=== PATIENT | male | born 1965 | race Caucasian/White ===

== ENCOUNTER 2019-01-15 09:12 | Emergency (ER) | payer SELFPAY ==
[2019-01-15] MEDS ORDERED: Sodium Chloride 0.9% 1,000 ML ONE (09:25)
[2019-01-15] MEDS ORDERED: Adenosine 12 MG/4 ML SDV ONE (09:25)
[2019-01-15] MEDS ORDERED: Adenosine 6 MG/2 ML SDV IVPUSH ONE (09:25)
--- NOTE | 2019-01-15 09:25 | EDM.PDOC ---
ED HPI GENERAL MEDICAL PROBLEM - General Chief Complaint: Cardiovascular Problem Stated Complaint: DEBI SENT HIM OVER HERE Time Seen by Provider: 01/15/19 09:19 Source of Information: Reports: Patient, Provider (From the occupational health clinic) History Limitations: Reports: No Limitations - History of Present Illness INITIAL COMMENTS - FREE TEXT/NARRATIVE: Provider and occupational health clinic indicates that she's been seeing Mr. Jay for the better part of 10 days due to development of cellulitis in his dorsal left hand. He's been on Bactrim double strength tablets for the last 10 days in the infection seems to be coming under control. However when she examined this morning he was diaphoretic cool pallid and heart rate was in the 155 range and he was hypotensive. She did not comment whether he was febrile or hypoxic. She sent him to the ED for further evaluation. Patient states he didn' t feel quite right when he got up for work this morning about 0430 hrs.. Talpa a little dizzy and offkilter and his balance. Slightly short of breath as well. No central chest pain blood pressure discomfort in his epigastrium with no radiation through to his back. No nausea or vomiting. He states was about 2 miles north of [place] when he decided to turn around and come back to town for evaluation because he was feeling so unwell. Monitor shows that he's an SVT in the 150s to 160s. Patient states she has not taken any decongestants or illicit drugs such as methamphetamines or cocaine. States using occasional beer but hasn't had one for a couple of days. Usually drinks 2-3 cups of coffee a day. He is a nonsmoker. Onset: Today, Unknown/Unsure (Unsure what time. He didn't feel quite right when he got up for work this morning.) Onset Date: 01/15/19 Duration: Hour(s): Location: Reports: Head, Chest (Feels dizzy and lightheaded feels mildly short of breath. Not aware of palpitations) Quality: Reports: Other Severity: Moderate (Mild dyspnea) Improves with: Reports: Rest (SM seem to come and go.) Worsens with: Reports: Rest Context: Reports: Other (Velma is occurrence of symptoms.). Denies: Activity , Exercise, Lifting, Sick Contact, Trauma Associated Symptoms: Reports: Diaphoresis, Loss of Appetite, Malaise, Shortness of Breath, Weakness, Other (Some pressure discomfort in his epigastrium.). 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 [No Known Home Meds] 08/15/15 [History] Past Medical History - Past Health History Medical/Surgical History: Denies Medical/Surgical History Musculoskeletal History: Reports: Other (See Below) (On antibiotics for a injury to his left hand since January 09. Still has 5 days of therapy. Is his Bactrim double strength twice a day. Initial injury was a simple caught on the dorsal aspect of his index finger which became secondarily infected. He states it spread to his entire dorsal hand at the time he gets sought medical care.) Social & Family History - Tobacco Core Measures Tobacco Use/Smoking Within Last 30 Days: No - Living Situation & Occupation Living situation: Reports: Occupation: Employed ED ROS GENERAL - Review of Systems Review Of Systems: See Below Constitutional: Reports: Malaise, Fatigue, Diaphoresis (This morning), Decreased Appetite. Denies: Fever, Chills HEENT: Reports: No Symptoms Respiratory: Reports: Shortness of Breath (Is morning) Cardiovascular: Reports: Dyspnea on Exertion, Lightheadedness. Denies: Chest Pain, Blood Pressure Problem, Claudication, Edema (Mild), Orthopnea Endocrine: Reports: Fatigue GI/Abdominal: Reports: Abdominal Pain : Reports: No Symptoms (Pressure discomfort in the epigastrium.) Musculoskeletal: Reports: Other (He has a healing wound on the dorsal aspect of his left index finger distal phalanx. There is no erythema of the hand. There is slight erythema and swelling middle and distal phalanges of the index finger) Skin: Reports: Other (Healing wound dorsal aspect left second finger) Neurological: Reports: Dizziness (Today.) Psychiatric: Reports: No Symptoms Hematologic/Lymphatic: Reports: No Symptoms Immunologic: Reports: No Symptoms ED EXAM, GENERAL - Physical Exam Exam: See Below Exam Limited By: No Limitations General Appearance: Alert, WD/WN, No Apparent Distress, Other (Monitor reveals SVT at 1 62/m. Pressure was 111/94. Afebrile. Sats 100% on room air) Eye Exam: Bilateral Eye: Normal Inspection Neck: Normal Inspection, Supple, Non-Tender, Full Range of Motion. No: Carotid Bruit, Lymphadenopathy (L), Lymphadenopathy (R) Respiratory/Chest: No Respiratory Distress, Lungs Clear, Normal Breath Sounds, No Accessory Muscle Use Cardiovascular: No Edema, No Gallop, No Murmur, No Rub, Tachycardia ([place] reveals a regular narrow complex tachycardia i.e. SVT at 1 62/m) Peripheral Pulses: 1+: Posterior Tibial (L), Posterior Tibial (R), Dorsalis Pedis (L), Dorsalis Pedis (R) GI/Abdominal: Normal Bowel Sounds, Soft, Non-Tender, No Organomegaly, No Abnormal Bruit, No Mass, Pelvis Stable, Other (No surgical scars) Back Exam: Normal Inspection, Full Range of Motion. No: CVA Tenderness (L), CVA Tenderness (R) Extremities: Normal Inspection, Normal Range of Motion, Non-Tender, No Pedal Edema Neurological: Alert, Oriented, CN II-XII Intact, Normal Cognition Psychiatric: Normal Affect, Normal Mood Skin Exam: Warm, Dry, Intact, Normal Color, No Rash EKG INTERPRETATION EKG Date: 01/15/19 Time: 09:24 Rhythm: Other (No complex tachycardia PSVT) Rate (Beats/Min): 157 [place]: LAD-Left [place] Deviation (Left axis deviation suggesting left anterior fascicular block.) P-Wave: Absent QRS: Other (No complex tachycardia. Early R-wave transition. Consider septal hypertrophy pattern.) ST-T: Normal QT: Prolonged (Minimally prolonged.) EKG Interpretation Comments: No signs of ischemia. Course - Vital Signs Last Recorded V/S: Last Vital Signs Temp 36.1 C 01/15/19 09:21 Pulse 82 01/15/19 10:01 Resp 16 01/15/19 09:21 BP 133/89 01/15/19 10:01 Pulse Ox 98 01/15/19 10:01 - Orders/Labs/Meds Orders: Active Orders 24 hr Category Date Time Status EKG Documentation Completion [RC] STAT Care 01/15/19 09:25 Active Sodium Chloride 0.9% [Normal Saline] 1,000 ml Med 01/15/19 09:30 Active IV ASDIRECTED Medication Orders Sodium Chloride (Normal Saline) 1,000 mls @ 125 mls/hr IV ASDIRECTED ABDIRAHMAN Last Admin: 01/15/19 09:35 Dose: 125 mls/hr Labs: Laboratory Tests 01/15/19 01/15/19 01/15/19 Range/Units 09:26 09:26 09:26 WBC 8.46 (4.23-9.07) K/mm3 RBC 4.91 (4.63-6.08) M/mm3 Hgb 15.8 (13.7-17.5) gm/L Hct 45.2 (40.1-51.0) % MCV 92.1 (79.0-92.2) fl MCH 32.2 (25.7-32.2) pg MCHC 35.0 (32.2-35.5) g/dl RDW Std Deviation 41.9 (35.1-43.9) fL Plt Count 317 (163-337) K/mm3 MPV 9.7 (9.4-12.3) fl Neutrophils % (Manual) 72 H (40-60) % Band Neutrophils % 0 (0-10) % Lymphocytes % (Manual) 15 L (20-40) % Atypical Lymphs % 0 % Monocytes % (Manual) 11 H (2-10) % Eosinophils % (Manual) 2 (0.8-7.0) % Basophils % (Manual) 0 L (0.2-1.2) Platelet Estimate Adequate RBC Morph Comment Normal PT 10.7 (9.5-12.1) SECONDS INR 0.98 APTT 29 (24-31) SECONDS Sodium 139 (136-145) mEq/L Potassium 4.5 (3.5-5.1) mEq/L Chloride 103 (98-107) mEq/L Carbon Dioxide 26 (21-32) mEq/L Anion Gap 14.5 (5-15) BUN 18 (7-18) mg/dL Creatinine 2.2 H (0.7-1.3) mg/dL Est Cr Clr Drug Dosing 42.62 mL/min Estimated GFR (MDRD) 31 (>60) mL/min BUN/Creatinine Ratio 8.2 L (14-18) Glucose 128 H (74-106) mg/dL Calcium 9.4 (8.5-10.1) mg/dL Magnesium 2.1 (1.8-2.4) mg/dl Total Bilirubin 0.4 (0.2-1.0) mg/dL AST 27 (15-37) U/L ALT 40 (16-63) U/L Alkaline Phosphatase 83 (46-116) U/L CK-MB (CK-2) 1.8 (0-3.6) ng/ml Troponin I < 0.017 (0.00-0.056) ng/mL C-Reactive Protein 1.5 H* (<1.0) mg/dL NT-Pro-B Natriuret Pep (0-125) pg/mL Total Protein 7.6 (6.4-8.2) g/dl Albumin 3.7 (3.4-5.0) g/dl Globulin 3.9 gm/dL Albumin/Globulin Ratio 1.0 (1-2) TSH 3rd Generation 3.832 H (0.358-3.74) uIU/mL 01/15/19 Range/Units 09:26 WBC (4.23-9.07) K/mm3 RBC (4.63-6.08) M/mm3 Hgb (13.7-17.5) gm/L Hct (40.1-51.0) % MCV (79.0-92.2) fl MCH (25.7-32.2) pg MCHC (32.2-35.5) g/dl RDW Std Deviation (35.1-43.9) fL Plt Count (163-337) K/mm3 MPV (9.4-12.3) fl Neutrophils % (Manual) (40-60) % Band Neutrophils % (0-10) % Lymphocytes % (Manual) (20-40) % Atypical Lymphs % % Monocytes % (Manual) (2-10) % Eosinophils % (Manual) (0.8-7.0) % Basophils % (Manual) (0.2-1.2) Platelet Estimate RBC Morph Comment PT (9.5-12.1) SECONDS INR APTT (24-31) SECONDS Sodium (136-145) mEq/L Potassium (3.5-5.1) mEq/L Chloride (98-107) mEq/L Carbon Dioxide (21-32) mEq/L Anion Gap (5-15) BUN (7-18) mg/dL Creatinine (0.7-1.3) mg/dL Est Cr Clr Drug Dosing mL/min Estimated GFR (MDRD) (>60) mL/min BUN/Creatinine Ratio (14-18) Glucose (74-106) mg/dL Calcium (8.5-10.1) mg/dL Magnesium (1.8-2.4) mg/dl Total Bilirubin (0.2-1.0) mg/dL AST (15-37) U/L ALT (16-63) U/L Alkaline Phosphatase (46-116) U/L CK-MB (CK-2) (0-3.6) ng/ml Troponin I (0.00-0.056) ng/mL C-Reactive Protein (<1.0) mg/dL NT-Pro-B Natriuret Pep 4424 H (0-125) pg/mL Total Protein (6.4-8.2) g/dl Albumin (3.4-5.0) g/dl Globulin gm/dL Albumin/Globulin Ratio (1-2) TSH 3rd Generation (0.358-3.74) uIU/mL Meds: Medications Generic Name Dose Route Start Last Admin Trade Name Freq PRN Reason Stop Dose Admin Sodium Chloride 1,000 mls @ 125 mls/hr 01/15/19 09:30 01/15/19 09:35 Normal Saline IV 125 mls/hr ASDIRECTED ABDIRAHMAN Administration Discontinued Medications Generic Name Dose Route Start Last Admin Trade Name Freq PRN Reason Stop Dose Admin Adenosine 6 mg 01/15/19 09:25 01/15/19 09:34 Adenocard IVPUSH 01/15/19 09:26 Not Given NOW ONE Adenosine Confirm 01/15/19 09:25 01/15/19 09:33 Adenocard Administered 01/15/19 09:26 6 mg Dose Administration 24 mg .ROUTE .STK-MED ONE Furosemide 40 mg 01/15/19 10:39 01/15/19 10:55 Lasix IVPUSH 01/15/19 10:40 40 mg NOW ONE Administration Sodium Chloride Confirm 01/15/19 09:25 01/15/19 09:33 Normal Saline Administered 01/15/19 09:26 Not Given Dose 1,000 mls @ as directed .ROUTE .STK-MED ONE - Radiology Interpretation Free Text/Narrative:: 53-year-old male sent to the ED from the occupational health clinic. He presented there feeling unwell dizzy headed diaphoretic and nurses appreciated that his heart rate was in the 150s to 160s identifying a sinus tachycardia. Rarely has blood pressure was low such as 86-90 systolic. He wasn't hypoxic. He was thus sent to the ED for further evaluation. Upon arrival here he was showing a narrow complex tachycardia i.e. SVT at 1 62/m. Blood pressure was 111/ 94. Sats were 98-100%. No pallor past history of SVT. No chest pain but he did have some epigastric pressure discomfort that did not radiate through to his back. Talpa slightly short of breath. Plan he will require I did a card to see if we can convert him back to sinus rhythm. He will have a chest x-ray performed ECG of course and routine labs including thyroid function. He is currently on no medications - Re-Assessments/Exams Free Text/Narrative Re-Assessment/Exam: 01/15/19 09:32 patient was given a done a card 6 mg IV bolus. He converted back to sinus rhythm in the 80s. Sats are 100% BP has yet to be rechecked. 01/15/19 09:44 econd ECG shows returned to sinus rhythm at 83/m. There is a left axis deviation of -25. There is mild early R-wave transition giving some consideration to septal hypertrophy pattern. ST segments are all normal with no signs of ischemia. 01/15/19 09:58 Patient reports that he feels much better. Pressure in his epigastrium is gone. Chest x-ray completed. It reveals mild tortuous thoracic aorta. Cardiac silhouette is upper limits of normal. Lungs are clear. 01/15/19 10:38 Labs reveal a normal white count at 8.46. Differential 72% neutrophils and no band cells. Hemoglobin is 15.8 with hematocrit of 45.2. Glucose 317,000. PT is 10.7 with an INR of 0.98. PTT is 29. Sodium 139 with a potassium of 4.5. Chloride 103 with a bicarbonate of 26. Anion gap is 14.5. BUNs 18. Creatinine is 2.2 EGFR is 31 i.e. significant stage III renal disease. Glucose is 128. Calcium 9.4. Magnesium 2.1. Liver function is normal. Troponin I is less than 0.017. C-reactive protein is 1.5. BNP is elevated at 4424. Total protein was 7.6. TSH is 3.832. It therefore appears that patient requires further evaluation both in regards to his renal insufficiency and from a cardiac point of view at least an echocardiogram to be done. He has remained in sinus rhythm since conversion with Adenocard at 76/m. BP is now 133/89. Sats are 97% on room air. Discussed the findings with the patient. Advised follow-up with Dr. Marquez his primary care physician sometime in the next week or 2 for repeat renal function to see if he has an underlying renal disorder since his EGFR is only 31. Cardiology consultation after echocardiogram is likely in order due to sudden development of SVT for no good reason. Departure - Departure Time of Disposition: 10:56 Disposition: Home, Self-Care 01 Condition: Fair Clinical Impression: Paroxysmal SVT (supraventricular tachycardia), Chronic renal insufficiency, stage III (moderate) - Discharge Information *PRESCRIPTION DRUG MONITORING PROGRAM REVIEWED*: Not Applicable *COPY OF PRESCRIPTION DRUG MONITORING REPORT IN PATIENT CARLOZ: Not Applicable Instructions: Supraventricular Tachycardia, Adult, [id number] Referrals: Jose Kim MD [Primary Care Provider] - Forms: ED Department Discharge, ED Return to Work/School Form Additional Instructions: Evaluation the emergency room this morning in regards to development of a very fast irregular heart beat which we call paroxysmal supraventricular tachycardia or SVT for short period the reason for the development of this is unclear. Lab tests were all completely normal. Your tends to the heart are caffeine, nicotine , alcohol and [id number] decongestants such as Sudafed or pseudoephedrine. Lab tests did reveal that there is a significant buildup of fluid in your lungs likely from rapid irregular heart rate that occurred during the night while he was sleeping and you are unaware of it. Therefore you were given 1 dose of Lasix 40 mg intravenously while in the ED to help you clear some of that fluid out of your lungs. Secondly lab tests revealed that your kidney function was not the best. It showing some mild renal insufficiency which she should not have for any good reason. Therefore it is important to follow-up with Dr. Marquez sometime in the next week or 2 for follow-up lab work on your kidney function. Kidney function might have declined secondary to the rapid irregular heart rate today and maybe only transient. You need further cardiac workup by way of an echocardiogram on your heart and likely cardiology consultation. Note given to excuse her from work place today. Tentatively May return to work tomorrow. Avoid more than 3 cups of coffee a day. Occasional beer is not going to hurt anything. Therefore no other medications are required at this time. - My Orders Last 24 Hours: My Active Orders 01/15/19 09:25 EKG Documentation Completion [RC] STAT 01/15/19 09:30 Sodium Chloride 0.9% [Normal Saline] 1,000 ml IV ASDIRECTED - Assessment/Plan Last 24 Hours: My Active Orders 01/15/19 09:25 EKG Documentation Completion [RC] STAT 01/15/19 09:30 Sodium Chloride 0.9% [Normal Saline] 1,000 ml IV ASDIRECTED
[2019-01-15] MEDS ORDERED: Sodium Chloride 0.9% 1,000 ML IV SCH (09:30)
[2019-01-15 10:31] VITALS: BP 133/89
[2019-01-15] MEDS ORDERED: Furosemide 40 MG/4 ML VIAL IVPUSH ONE (10:39)
--- NOTE | 2019-01-15 10:56 | CR ---
Chest: Portable view of the chest was obtained. Comparison: No prior chest x-ray. Heart size is normal. Tortuous thoracic aorta is seen. Lungs are clear. Slight scoliosis is noted within the spine. Impression: 1. Nothing acute is appreciated on portable chest x-ray. Diagnostic code #2
== END 2019-01-15 11:30 | disposition home or self-care (01) ==
LOC: JD.ED 09:12
DX: I47.1 Supraventricular tachycardia (principal); N18.3 Chronic kidney disease, stage 3 (moderate)
CPT/HCPCS: 36415; 71045; 80053; 82553; 83735; 83880; 84443; 84484; 85007; 85027; 85610; 85730; 86140; 93005; 96361; 96374; 96375; 99284; J0153; J1940; J7040